=== PATIENT | male | born 1985 | race Caucasian/White ===

== ENCOUNTER 2023-12-25 08:28 | Emergency (ER) | payer OTHER ==
[2023-12-25] MEDS: Sodium Chloride 0.9% 10 ML Syringe FLUSH ONE (08:45)
[2023-12-25] MEDS: Morphine 4 MG/ML Syringe IVPUSH ONE (08:58)
[2023-12-25] MEDS: Ondansetron 4 MG/2 ML SDV IVPUSH ONE (09:17)
[2023-12-25 09:47] LABS: BASOPHILS PERCENT AUTO 0.3 % (0.0-1.0); EOSINOPHILS ABSOLUTE AUTO 0.1 K/mm3 (0.0-0.4); EOSINOPHILS PERCENT AUTO 1.6 % (0.0-6.0); HEMOGLOBIN 14.8 gm/dl (14.0-18.0); IMMATURE GRAN ABSOLUTE AUTO 0.02 K/mm3 (0.00-0.05); IMMATURE GRAN PERCENT AUTO 0.2 % (0.0-0.4); LYMPHOCYTES ABSOLUTE AUTO 1.6 K/mm3 (1.0-4.8); LYMPHOCYTES PERCENT AUTO 18.1 % (24.0-44.0); MEAN CORPUSCULAR HEMOGLOBIN 30.2 pg (28.0-32.0); MEAN CORPUSCULAR HGB CONC 33.6 g/dl (32.0-36.0); MEAN CORPUSCULAR VOLUME 89.8 fl (83.0-99.0); MEAN PLATELET VOLUME 10.1 fl (9.4-12.4); MONOCYTES ABSOLUTE AUTO 0.5 K/mm3 (0.0-0.8); MONOCYTES PERCENT AUTO 5.5 % (0.0-8.0); NEUTROPHILS ABSOLUTE AUTO 6.5 K/mm3 (1.8-7.7); NEUTROPHILS PERCENT AUTO 74.3 % (41.0-71.0); PLATELET COUNT,PLT 249 K/mm3 (150-400); WHITE BLOOD CELL COUNT,WBC 8.69 K/mm3 (3.9-11.3)
[2023-12-25 09:50] LABS: A/G RATIO 1.3 (1-2); ALBUMIN 4.4 g/dl (3.4-5.0); ANION GAP 13.9 (5-15); BILIRUBIN TOTAL 0.7 mg/dL (0.2-1.0); BUN/CREATININE RATIO 11.3 (14-18); CALCIUM 8.8 mg/dL (8.5-10.1); CREATININE 1.6 mg/dL (0.7-1.3); EST CRCL DRUG DOSING (CG) 59.67 mL/min; POTASSIUM,K 3.9 mEq/L (3.5-5.1); PROTEIN TOTAL,TP 7.9 g/dl (6.4-8.2)
[2023-12-25] MEDS: Iopamidol 612 MG/ML 100 ML Bottle IVPUSH ONE (09:50)
[2023-12-25] MEDS: Sodium Chloride 0.9% 10 ML Syringe FLUSH PRN (09:50)
[2023-12-25] MEDS: Sodium Chloride 0.9% 1,000 ML IV STA (10:30)
[2023-12-25 11:31] LABS: APPEARANCE,URINE CLEAR (Clear); BILIRUBIN,URINE NEGATIVE (Negative); COLOR,URINE YELLOW (Yellow); GLUCOSE,URINE NEGATIVE (Negative); KETONES,URINE NEGATIVE (Negative); OCCULT BLOOD,URINE 2+ (Negative); PH,URINE 6.5 (5.0-8.0); PROTEIN,URINE NEGATIVE (Negative)
[2023-12-25 11:32] LABS: LEUKOCYTE ESTERASE,URINE NEGATIVE (Negative); NITRITE,URINE NEGATIVE (Negative); UROBILINOGEN,URINE 0.2 (0.2-1.0)
[2023-12-25 12:34] LABS: BACTERIA,URINE FEW /hpf (FEW); MUCUS,URINE FEW /hpf (FEW); RBC,URINE 30-40 /hpf (0-5); SQUAMOUS EPITHELIAL CELLS,UR 0-5 /hpf (0-5); WBC,URINE 0-5 /hpf (0-5)
[2023-12-25] MEDS: Tamsulosin 0.4 MG Cap.ER PO ONE (12:53)
[2023-12-25 13:03] VITALS: BP 107/74; PULSE 57
== END 2023-12-25 12:59 | disposition home or self-care (01) ==
LOC: JD.ED 08:28
DX: N20.2 Calculus of kidney with calculus of ureter (principal); Z79.899 Other long term (current) drug therapy; Z86.16 Personal history of COVID-19
CPT/HCPCS: 36415; 74177; 80053; 81001; 85025; 96361; 96374; 96375; 99284; A9270; J2270; J2405; J3490; J7030; Q9967

== ENCOUNTER 2024-03-15 11:58 | Emergency (ER) | payer OTHER ==
[2024-03-15 12:10] VITALS: BP 124/93; PULSE 68
[2024-03-15] MEDS ORDERED: Cyclobenzaprine 10 MG Tab ONE (12:43)
[2024-03-15] MEDS: Cyclobenzaprine 10 MG Tab PO ONE (12:51)
== END 2024-03-15 12:54 | disposition home or self-care (01) ==
LOC: EDUNIT# → JD.ED 11:58
DX: M43.6 Torticollis (principal); F17.210 Nicotine dependence, cigarettes, uncomplicated; Z86.16 Personal history of COVID-19; Z90.49 Acquired absence of other specified parts of digestive tract
CPT/HCPCS: 99283; A9270